=== PATIENT | female | born 1985 | race Caucasian/White ===

== ENCOUNTER 2016-07-16 17:36 | Emergency (ER) | payer OTHER ==
[~2016-07-16] VITALS: Ht 170.2 cm; Wt 56.4 kg
[2016-07-16 18:29] LABS: PATH.CAST-FLAG NOT PRESENT; SPERM-FLAG NOT PRESENT; SRC-FLAG NOT PRESENT; XTAL-FLAG NOT PRESENT; YLC-FLAG NOT PRESENT
[2016-07-16] MEDS ORDERED: NITR100C56 PO (18:36)
[2016-07-16 18:40] LABS: HCG UR OBC PASS
[2016-07-16] MEDS ORDERED: CEFTRIAXONE PMX 1GM/50ML 50 ML IVPB ONE (19:00)
[2016-07-16] MEDS ORDERED: SODIUM CHLORIDE FLUSH 10ML SYR IVF ONE (19:00)
[2016-07-16] MEDS ORDERED: SODIUM CHLORIDE 0.9% 1,000ML IVBOLUS ONE (19:00)
[2016-07-16] MEDS ORDERED: CEFTRIAXONE PMX 1GM/50ML 50 ML ONE (19:09)
[2016-07-16 19:55] LABS: HEMOGLOBIN 13.5 g/dL (11.7-16.4)
[2016-07-16 20:05] LABS: BLOOD UREA NITROGEN 13 mg/dL (7-18)
[2016-07-16 20:50] VITALS: BP 111/63
== END 2016-07-16 20:52 | disposition home or self-care (01) ==
LOC: ED 19:56
DX: R30.0 Dysuria (principal); K21.9 Gastro-esophageal reflux disease without esophagitis
CPT/HCPCS: 36415; 80048; 81001; 81025; 82040; 85025; 96365; 99284; J0696; J7030